=== PATIENT | male | born 1960 | race Caucasian/White ===

== ENCOUNTER 2019-10-21 11:03 | Emergency (ER) | payer OTHER ==
[~2019-10-21] VITALS: Ht 175.3 cm; Wt 98.4 kg
== END 2019-10-21 17:36 | disposition home or self-care (01) ==
LOC: ER 11:03
DX: K57.90 Diverticulosis of intestine, part unspecified, without perforation or abscess without bleeding (principal); K60.0 Acute anal fissure

== ENCOUNTER 2023-08-31 13:59 | Outpatient (CLI) | payer OTHER | END 2023-08-31 14:01 | disposition home or self-care (01) | LOC: RAD 13:59 | DX: N23 Unspecified renal colic (principal) ==

== ENCOUNTER 2025-03-22 09:32 | Outpatient (CLI) | payer OTHER | END 2025-03-22 10:00 | disposition home or self-care (01) | LOC: RAD 09:32 | DX: M54.50 Low back pain, unspecified (principal); M51.86 Other intervertebral disc disorders, lumbar region ==